=== PATIENT | female | born 1970 ===

== ENCOUNTER 2017-01-22 20:02 | Emergency (ER) | payer MEDICAID, OTHER ==
[2017-01-22 20:43] VITALS: BP 110/85; PULSE 82; RESP 18; TEMP 98.6; O2SAT 100
--- NOTE | 2017-01-22 21:25 | ED PDOC ---
Lower Extremity Pain/Injury Time Seen by Provider: 01/22/17 20:54 Chief Complaint (Nursing): Lower Extremity Problem/Injury Chief Complaint (Provider): left heel pain History Per: Patient History/Exam Limitations: no limitations Additional Complaint(s): Maricruz Welch is a 46 year old female, with a previous medical history of anxiety and depression, who presents to the ED for the evaluation of a chronic heel spur to her left foot. Patient reports being unable to walk today but denies taking any medications. She denies any numbness, tingling, weakness or trauma. 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 PMD: none provided Past Medical History Reviewed: Historical Data, Nursing Documentation, Vital Signs Vital Signs: Last Vital Signs Temp 98.6 F 01/22/17 20:40 Pulse 82 01/22/17 20:40 Resp 18 01/22/17 20:40 BP 110/85 01/22/17 20:40 Pulse Ox 100 01/22/17 20:40 - Medical History PMH: Anxiety, Depression Denies: Asthma, Chronic Kidney Disease - Surgical History Surgical History: No Surg Hx, Tonsillectomy - Family History Family History: States: Unknown Family Hx, Diabetes - Immunization History Hx Tetanus Toxoid Vaccination: Yes - Home Medications Home Medications: Ambulatory Orders Medication Instructions Recorded Acetaminophen with Codeine 1 tab PO Q6 PRN #15 tab 08/25/14 [Tylenol with Codeine No. 3 300 mg-30 mg] FLUoxetine [Prozac] 30 mg PO DAILY 08/25/14 Oxcarbazepine [Trileptal] 600 mg PO BID 08/25/14 Topiramate [Topamax] 100 mg PO TID 08/25/14 Zolpidem Tartrate [Ambien] 10 mg PO HS 08/25/14 hydrOXYzine Pamoate [Vistaril] 50 mg PO TID 08/25/14 Emtricitabine/Tenofovir Diso 1 tab PO DAILY #26 tab 05/20/15 [Truvada 200 MG-300 MG] Ondansetron ODT [Zofran ODT] 4 mg PO Q8H PRN #60 odt 05/20/15 Cyclobenzaprine [Cyclobenzaprine 10 mg PO Q8 #15 tab 12/18/15 HCl] Naproxen [Naprosyn] 500 mg PO BID #20 tablet 12/18/15 Diclofenac Sodium [Voltaren] 50 mg PO TID PRN #30 ect 04/06/16 Zolpidem [Ambien] 10 mg PO HS #2 tab 04/06/16 Cephalexin [cephalexin] 500 mg PO BID #20 cap 07/15/16 Albuterol HFA [Ventolin HFA 90 2 puff IH Q4H PRN #1 inh 11/11/16 mcg/actuation (8 g)] Azithromycin [Zithromax] 250 mg PO DAILY #6 dose 11/11/16 Prednisone 50 mg PO DAILY #4 tablet 11/11/16 Ibuprofen [Motrin Tab] 800 mg PO Q6H PRN #20 tab 01/22/17 oxyCODONE/Acetaminophen [Percocet 1 ea PO Q6H PRN #15 tab 01/22/17 5/325 mg Tab] - Allergies Allergies/Adverse Reactions: Allergies Allergy/AdvReac Type Severity Reaction Status Date / Time No Known Allergies Allergy Verified 11/11/16 16:32 Review of Systems ROS Statement: Except As Marked, All Systems Reviewed And Found Negative Musculoskeletal: Positive for: Foot Pain (left heel pain ) Neurological: Negative for: Weakness, Numbness, Other (tingling ) Physical Exam - Reviewed Nursing Documentation Reviewed: Yes Vital Signs Reviewed: Yes - Physical Exam Appears: Positive for: Well, Non-toxic, No Acute Distress Cardiovascular/Chest: Positive for: Regular Rate, Rhythm Respiratory: Positive for: CNT, Normal Breath Sounds Extremity: Positive for: Normal ROM (pain to dorsiflexion of the foot), Tenderness (with palpation to the heel ). Negative for: Deformity, Swelling Neurologic/Psych: Positive for: Alert, Oriented - ECG O2 Sat by Pulse Oximetry: 100 (RA) Pulse Ox Interpretation: Normal Medical Decision Making Medical Decision Making: Initial Impression: Heel pain Initial Plan: * aggie * dago * reevaluation Scribe Attestation: Documented by Syeda Marsh, acting as a scribe for Jeannette Loya PA-C. Provider Scribe Attestation: All medical record entries made by the Scribe were at my direction and personally dictated by me. I have reviewed the chart and agree that the record accurately reflects my personal performance of the history, physical exam, medical decision making, and the department course for this patient. I have also personally directed, reviewed, and agree with the discharge instructions and disposition. Disposition - Clinical Impression Clinical Impression: Heel spur - Patient ED Disposition Is Patient to be Admitted: No Counseled Patient/Family Regarding: Diagnosis, Need For Followup, Rx Given - Disposition Referrals: Podiatry Clinic [Outside] Disposition: Routine/Home Disposition Time: 22:18 Condition: GOOD Prescriptions: Ibuprofen [Motrin Tab] 800 mg PO Q6H PRN #20 tab PRN Reason: Pain oxyCODONE/Acetaminophen [Percocet 5/325 mg Tab] 1 ea PO Q6H PRN #15 tab PRN Reason: Pain, Severe (8-10) Instructions: Heel Spur (ED), Plantar Fasciitis (ED)
== END 2017-01-22 23:02 | disposition home or self-care (01) ==
LOC: H.ER 20:02
DX: M77.32 Calcaneal spur, left foot (principal)

== ENCOUNTER 2017-06-09 09:33 | Emergency (ER) | payer OTHER ==
--- NOTE | 2017-06-09 11:07 | RAD ---
PROCEDURE: Radiographs of the Lumbar Spine. HISTORY: Fall COMPARISON: No prior. FINDINGS: BONES: There is normal alignment of the lumbar vertebral bodies. Lumbar lordosis is maintained. Vertebral bodies are normal in height. There is no acute fracture, spondylolysis or spondylolisthesis. DISC SPACES: The disc heights are maintained. OTHER FINDINGS: None. IMPRESSION: No acute fracture, spondylolysis or spondylolisthesis.
[2017-06-09] MEDS ORDERED: Oxycodone/Acetaminophen 5/325 mg Tab PO ONE (11:28)
[2017-06-09] MEDS ORDERED: Oxycodone/Acetaminophen 5/325 mg Tab ONE (11:30)
--- NOTE | 2017-06-09 12:23 | ED PDOC ---
Lower Extremity Pain/Injury Time Seen by Provider: 06/09/17 09:41 Chief Complaint (Nursing): Lower Extremity Problem/Injury Chief Complaint (Provider): Ankle injury History Per: Patient History/Exam Limitations: no limitations Onset/Duration Of Symptoms: Days (x1) Current Symptoms Are (Timing): Still Present Additional Complaint(s): 46 y/o female who presents to the ED for evaluation of ankle injury sustained earlier today. Patient was walking out of her apartment and fell, twisting left ankle, right knee and lower back. She is currently having pain at the left ankle , right knee, and back. PMD: Dr. Romero Past Medical History Reviewed: Historical Data, Nursing Documentation, Vital Signs Vital Signs: Last Vital Signs Temp 97 F L 06/09/17 09:46 Pulse 74 06/09/17 09:46 Resp 16 06/09/17 09:46 BP 120/55 L 06/09/17 09:46 Pulse Ox 98 06/09/17 09:46 - Medical History PMH: Anxiety, Depression Denies: Asthma, Chronic Kidney Disease - Surgical History Surgical History: Tonsillectomy - Family History Family History: States: Unknown Family Hx, Diabetes - Social History Current smoker - smoking cessation education provided: No Alcohol: None Drugs: Denies - Immunization History Hx Tetanus Toxoid Vaccination: Yes - Home Medications Home Medications: Ambulatory Orders Medication Instructions Recorded Acetaminophen with Codeine 1 tab PO Q6 PRN #15 tab 08/25/14 [Tylenol with Codeine No. 3 300 mg-30 mg] FLUoxetine [Prozac] 30 mg PO DAILY 08/25/14 Oxcarbazepine [Trileptal] 600 mg PO BID 08/25/14 Topiramate [Topamax] 100 mg PO TID 08/25/14 Zolpidem Tartrate [Ambien] 10 mg PO HS 08/25/14 hydrOXYzine Pamoate [Vistaril] 50 mg PO TID 08/25/14 Emtricitabine/Tenofovir Diso 1 tab PO DAILY #26 tab 05/20/15 [Truvada 200 MG-300 MG] Ondansetron ODT [Zofran ODT] 4 mg PO Q8H PRN #60 odt 05/20/15 Cyclobenzaprine [Cyclobenzaprine 10 mg PO Q8 #15 tab 04/11/16 HCl] Naproxen [Naprosyn] 500 mg PO BID #20 tablet 12/18/15 Diclofenac Sodium [Voltaren] 50 mg PO TID PRN #30 ect 04/06/16 Zolpidem [Ambien] 10 mg PO HS #2 tab 04/06/16 Cephalexin [cephalexin] 500 mg PO BID #20 cap 07/15/16 Albuterol HFA [Ventolin HFA 90 2 puff IH Q4H PRN #1 inh 11/11/16 mcg/actuation (8 g)] Azithromycin [Zithromax] 250 mg PO DAILY #6 dose 11/11/16 Prednisone 50 mg PO DAILY #4 tablet 11/11/16 Ibuprofen [Motrin Tab] 800 mg PO Q6H PRN #20 tab 01/22/17 oxyCODONE/Acetaminophen [Percocet 1 ea PO Q6H PRN #15 tab 01/22/17 5/325 mg Tab] - Allergies Allergies/Adverse Reactions: Allergies Allergy/AdvReac Type Severity Reaction Status Date / Time No Known Allergies Allergy Verified 06/09/17 09:39 Review of Systems ROS Statement: Except As Marked, All Systems Reviewed And Found Negative Musculoskeletal: Positive for: Back Pain, Leg Pain (right knee), Foot Pain ( left ankle) Physical Exam - Reviewed Nursing Documentation Reviewed: Yes Vital Signs Reviewed: Yes - Physical Exam Appears: Positive for: Non-toxic, No Acute Distress Head Exam: Positive for: ATRAUMATIC, NORMAL INSPECTION, NORMOCEPHALIC Skin: Positive for: Normal Color, Warm, Dry Eye Exam: Positive for: EOMI, Normal appearance, PERRL Neck: Positive for: Normal, Supple Pulses-Dorsalis Pedis (L): 2+ Pulses-Dorsalis Pedis (R): 2+ Extremity: Positive for: Normal ROM, Capillary Refill (< 2 sec), Swelling ( Right knee with slight erythema and swelling, full ROM. Left ankle with swelling around malleolar area, no deformity or step off.) Neurologic/Psych: Positive for: Alert, Oriented - ECG O2 Sat by Pulse Oximetry: 98 (RA) Pulse Ox Interpretation: Normal Medical Decision Making Medical Decision Making: Time: 10:09 Initial Plan: --X-Ray Left Ankle --X-Ray Right Knee --X-Ray LS Spine --Patient given Motrin, 600 mg PO --Pending reevaluation Time: 11:28 --Patient with persistent pain --Given 1 tab Percocet Time: 11:06 LS SPINE X-RAY: FINDINGS: BONES: There is normal alignment of the lumbar vertebral bodies. Lumbar lordosis is maintained. Vertebral bodies are normal in height. There is no acute fracture, spondylolysis or spondylolisthesis. DISC SPACES: The disc heights are maintained. OTHER FINDINGS: None. IMPRESSION: No acute fracture, spondylolysis or spondylolisthesis. Time: 12:46 LEFT ANKLE X-RAY: FINDINGS: BONES: There is no acute displaced fracture or bone destruction. Bone alignment and mineralization are normal. There is a prominent plantar calcaneal spur. JOINTS: There is a small joint effusion. Ankle mortise maintained. Talar dome intact SOFT TISSUES: Normal. OTHER FINDINGS: None. IMPRESSION: No acute fracture or dislocation. --Patient reports feeling better. --X-Ray Right Knee is negative (read and viewed by me) --Patient is medically stable for discharge home. --Will place DONALD bandages. Advised patient to take Motrin for pain. outpt orthopedic referral given Clinical Impression: Fall Counseling was provided and all questions were answered regarding diagnosis and need for follow up with PMD. There is agreement to discharge plan. Return if symptoms persist or worsen. Scribe Attestation: Documented by Sisi Orta, acting as a scribe for Bárbara Bravo MD Provider Scribe Attestation: All medical record entries made by the Scribe were at my direction and personally dictated by me. I have reviewed the chart and agree that the record accurately reflects my personal performance of the history, physical exam, medical decision making, and the department course for this patient. I have also personally directed, reviewed, and agree with the discharge instructions and disposition. Disposition - Clinical Impression Clinical Impression: Fall - Patient ED Disposition Is Patient to be Admitted: No Counseled Patient/Family Regarding: Studies Performed, Diagnosis, Need For Followup - Disposition Referrals: [facility] [Outside] Eleuterio Davison III, MD [Staff Provider] - Disposition: Routine/Home Disposition Time: 12:00 Condition: IMPROVED Additional Instructions: follow up with orthopedist if pain persists within one week take motrin for pain return to the ED with any worsening or concerning symptoms. Instructions: Fall Prevention (ED) Forms: [email or web address] (Upper Sorbian)
--- NOTE | 2017-06-09 12:47 | RAD ---
PROCEDURE: Left Ankle Radiographs. HISTORY: Left ankle pain, post fall COMPARISON: None FINDINGS: BONES: There is no acute displaced fracture or bone destruction. Bone alignment and mineralization are normal. There is a prominent plantar calcaneal spur. JOINTS: There is a small joint effusion. Ankle mortise maintained. Talar dome intact SOFT TISSUES: Normal. OTHER FINDINGS: None. IMPRESSION: No acute fracture or dislocation.
--- NOTE | 2017-06-09 12:51 | RAD ---
PROCEDURE: Right Knee Radiographs. HISTORY: Fall COMPARISON: None. FINDINGS: BONES: There is no acute displaced fracture or bone destruction. Bone alignment and mineralization are normal. JOINTS: Normal. No osteoarthritis. JOINT EFFUSION: None. OTHER FINDINGS: None. IMPRESSION: No acute fracture or dislocation.
[2017-06-09 13:06] VITALS: BP 124/77; PULSE 78; RESP 18; TEMP 98
[2017-06-10 22:07] VITALS: O2SAT 98
== END 2017-06-09 13:15 | disposition home or self-care (01) ==
LOC: H.ER 09:33
DX: Z04.3 Encounter for examination and observation following other accident (principal); W01.0XXA Fall on same level from slipping, tripping and stumbling without subsequent striking against object, initial encounter; Y93.01 Activity, walking, marching and hiking; Y92.039 Unspecified place in apartment as the place of occurrence of the external cause

== ENCOUNTER 2018-01-02 16:40 | Emergency (ER) | payer OTHER ==
[2018-01-02 16:52] VITALS: BP 128/86; PULSE 93; RESP 16; TEMP 97.7; O2SAT 99
--- NOTE | 2018-01-02 18:12 | ED PDOC ---
Lower Extremity Pain/Injury Time Seen by Provider: 01/02/18 16:55 Chief Complaint (Nursing): Lower Extremity Problem/Injury Chief Complaint (Provider): Lower Extremity Problem/Injury History Per: Patient History/Exam Limitations: no limitations Onset/Duration Of Symptoms: Days (x 1) Current Symptoms Are (Timing): Still Present Additional Complaint(s): 47 year old female with chronic heel spurs presents to the ED with left heel pain since this morning. Patient reports waking with pain that made it difficult to walk and nearly caused her to fall. She was well yesterday. Otherwise: (-) trauma, (-) injury, (-) swelling, (-) fever, (-) numbness, (-) other complaints. PMD: Dr. Nick Lovell MD Past Medical History Reviewed: Historical Data, Nursing Documentation, Vital Signs Vital Signs: Last Vital Signs Temp 97.7 F 01/02/18 16:47 Pulse 93 H 01/02/18 16:47 Resp 16 01/02/18 16:47 BP 128/86 01/02/18 16:47 Pulse Ox 99 01/02/18 16:47 - Medical History PMH: Anxiety, Depression Denies: Asthma, Chronic Kidney Disease - Surgical History Surgical History: Tonsillectomy - Family History Family History: States: Unknown Family Hx, Diabetes - Immunization History Hx Tetanus Toxoid Vaccination: Yes - Home Medications Home Medications: Ambulatory Orders Medication Instructions Recorded Acetaminophen with Codeine 1 tab PO Q6 PRN #15 tab 08/25/14 [Tylenol with Codeine No. 3 300 mg-30 mg] FLUoxetine [Prozac] 30 mg PO DAILY 08/25/14 Oxcarbazepine [Trileptal] 600 mg PO BID 08/25/14 Topiramate [Topamax] 100 mg PO TID 08/25/14 Zolpidem Tartrate [Ambien] 10 mg PO HS 08/25/14 hydrOXYzine Pamoate [Vistaril] 50 mg PO TID 08/25/14 Emtricitabine/Tenofovir Diso 1 tab PO DAILY #26 tab 05/20/15 [Truvada 200 MG-300 MG] Ondansetron ODT [Zofran ODT] 4 mg PO Q8H PRN #60 odt 05/20/15 Cyclobenzaprine [Cyclobenzaprine 10 mg PO Q8 #15 tab 12/18/15 HCl] Naproxen [Naprosyn] 500 mg PO BID #20 tablet 12/18/15 Diclofenac Sodium [Voltaren] 50 mg PO TID PRN #30 ect 04/06/16 Zolpidem [Ambien] 10 mg PO HS #2 tab 04/06/16 Cephalexin [cephalexin] 500 mg PO BID #20 cap 07/15/16 Albuterol HFA [Ventolin HFA 90 2 puff IH Q4H PRN #1 inh 11/11/16 mcg/actuation (8 g)] Azithromycin [Zithromax] 250 mg PO DAILY #6 dose 11/11/16 Prednisone 50 mg PO DAILY #4 tablet 11/11/16 Ibuprofen [Motrin Tab] 800 mg PO Q6H PRN #20 tab 01/22/17 oxyCODONE/Acetaminophen [Percocet 1 ea PO Q6H PRN #15 tab 01/22/17 5/325 mg Tab] Meloxicam [Mobic] 15 mg PO DAILY PRN #30 tab 01/02/18 - Allergies Allergies/Adverse Reactions: Allergies Allergy/AdvReac Type Severity Reaction Status Date / Time No Known Allergies Allergy Verified 06/09/17 09:39 Review of Systems ROS Statement: Except As Marked, All Systems Reviewed And Found Negative Musculoskeletal: Positive for: Foot Pain (left heel pain) Physical Exam - Reviewed Nursing Documentation Reviewed: Yes Vital Signs Reviewed: Yes - Physical Exam Comments: GENERAL APPEARANCE: Patient is awake, alert, oriented x 3, in mild painful distress. SKIN: Warm, dry; (-) cyanosis. LOWER EXTREMITY: (-) swelling, (-) numbness, (-) tenderness. FROM. Achilles tendon intact and nontender. Knee and foot: (-) injury. CARDIOVASCULAR: (+) distal pulse. NEUROLOGIC: (+) distal sensation. - ECG O2 Sat by Pulse Oximetry: 99 (RA) Pulse Ox Interpretation: Normal Medical Decision Making Medical Decision Making: Time; 16:55 Initial Plan: --Toradol 60 mg IM Advised to follow up with manager dental in 1-2 days without fail. Advised to take medication as prescribed. Return to the emergency room at any time for any new or worsening symptoms. Patient states she fully agrees with and understands discharge instructions. States that she agrees with the plan and disposition. Verbalized and repeated discharge instructions and plan. I have given the patient opportunity to ask any additional questions. Scribe Attestation: Documented by Teri Piper acting as a scribe for Jami James PA-C MD Scribe Attestation: All medical record entries made by the Scribe were at my direction and personally dictated by me. I have reviewed the chart and agree that the record accurately reflects my personal performance of the history, physical exam, medical decision making, and the department course for this patient. I have also personally directed, reviewed, and agree with the discharge instructions and disposition. Disposition - Clinical Impression Clinical Impression: Heel spur, Foot pain - Patient ED Disposition Is Patient to be Admitted: No Counseled Patient/Family Regarding: Diagnosis, Need For Followup, Rx Given - Disposition Disposition: Routine/Home Disposition Time: 17:30 Condition: STABLE Additional Instructions: Thank you for letting us take care of you today. You were treated for heel spur , foot pain. The emergency medical care you received today was directed at your acute symptoms. If you were prescribed any medication, please fill it and take as directed. It may take several days for your symptoms to resolve. Return to the Emergency Department if your symptoms worsen, do not improve, or if you have any other problems. Please contact your foot doctor in 2 days for re-evaluation and follow up. Bring any paperwork you were given at discharge with you along with any medications you are taking to your follow up visit. Our treatment cannot replace ongoing medical care by a primary care provider (PCP) outside of the emergency department. Thank you for allowing the [facility] team to be part of your care today. Prescriptions: Meloxicam [Mobic] 15 mg PO DAILY PRN #30 tab PRN Reason: Pain, Moderate (4-7) Instructions: Heel Pain (Caused by Plantar Fasciitis) (DC), Heel Spurs Forms: [facility] (Brazilian), [facility] ED School/Work Excuse
== END 2018-01-02 17:48 | disposition home or self-care (01) ==
LOC: H.ER 16:40
DX: M77.30 Calcaneal spur, unspecified foot (principal); F32.9 Major depressive disorder, single episode, unspecified; F41.9 Anxiety disorder, unspecified
CPT/HCPCS: 96372; 99283; J1885